=== PATIENT | male | born 1980 | race American Indian/Alaskan Native ===

== ENCOUNTER 2017-04-05 14:50 | Emergency (ER) | payer OTHER, MEDICAID ==
[2017-04-06 00:37] VITALS: BP 104/66
== END 2017-04-05 22:20 | disposition home or self-care (01) ==
LOC: ED 14:50
DX: F29 Unspecified psychosis not due to a substance or known physiological condition (principal); Z88.0 Allergy status to penicillin
CPT/HCPCS: 99282

== ENCOUNTER 2017-08-31 12:15 | Emergency (ER) | payer MEDICAID ==
[2017-08-31 12:31] VITALS: BP 99/75
[2017-08-31] MEDS ORDERED: NORCO 5/325 PO ONE (15:40)
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
== END 2017-08-31 18:57 | disposition home or self-care (01) ==
LOC: ED 12:15
DX: H11.32 Conjunctival hemorrhage, left eye (principal); F17.200 Nicotine dependence, unspecified, uncomplicated; Y04.0XXA Assault by unarmed brawl or fight, initial encounter; Y93.89 Activity, other specified; Y92.89 Other specified places as the place of occurrence of the external cause; Y99.8 Other external cause status
CPT/HCPCS: 70450; 70486

== ENCOUNTER 2018-04-26 14:07 | Emergency (ER) | payer MEDICAID ==
[2018-04-26 15:07] LABS: Basophils # (Auto) 0.1 K/mm3 (0.0-0.1); Basophils % (Auto) 1.1 % (0.0-1.8); Eosinophils % (Auto) 0.3 % (0.0-4.3); Hematocrit 44.9 % (35.5-45.6); Hemoglobin 15.1 gm/dl (11.8-15.2); Lymphocytes # (Auto) 2.5 K/mm3 (1.2-5.4); Lymphocytes % (Auto) 33.1 % (13.4-35.0); Mean Corpuscular HGB Conc 34 % (32-34); Mean Corpuscular Hemoglobin 30 pg (28-32); Mean Corpuscular Volume 88 fl (84-94); Monocytes # (Auto) 0.5 K/mm3 (0.0-0.8); Monocytes % (Auto) 7.3 % (0.0-7.3); Platelet Count 240 K/mm3 (140-440); Red Cell Distribution Width 14.4 % (13.2-15.2)
[2018-04-26 15:19] LABS: BUN/Creatinine Ratio 11; Blood Urea Nitrogen 10 mg/dL (9-20); Calcium 9.7 mg/dL (8.4-10.2); Hemolysis Index 162
[2018-04-26] MEDS ORDERED: NACL 0.9% 1000 ML 1,000 ML IV ONE (15:55)
--- NOTE | 2018-04-26 17:48 | Emergency Department Report ---
HPI - General Chief Complaint: Syncope Time Seen by Provider: 04/26/18 15:55 - HPI HPI: The patient is a 37-year-old male who presents for evaluation of syncope. The patient reports experiencing constant severe lightheadedness for the past one day, exacerbated with physical activity or ambulation, improved with lying down and resting. He shares that he was walking outside in the hot sun when his lightheadedness became worse and he passed out. The patient denies fever, head injury, headache, neck pain, neck stiffness, vision or hearing changes, smell or taste changes, paresthesias, facial drooping, slurred speech, seizure-like activity, urine or bowel incontinence or retention, or other focal neurological deficit. ED Past Medical Hx - Past Medical History Hx Hypertension: Yes Hx Psychiatric Treatment: Yes Additional medical history: TBI - Surgical History Hx Cholecystectomy: Yes Additional Surgical History: brain stent, punctured lung. tonsillectomy - Social History Smoking Status: Current Every Day Smoker Substance Use Type: None - Medications Home Medications: Home Medications Medication Instructions Recorded Confirmed Last Taken Type Cyclobenzaprine [Flexeril] 10 mg PO TID PRN #15 tablet 02/03/14 Unknown Rx Ibuprofen [Motrin] 800 mg PO Q8H PRN #15 tablet 02/03/14 Unknown Rx Prednisone [Prednisone 5 mg (6-Day 5 mg PO .TAPER #1 tab.ds.pk 02/03/14 Unknown Rx Pack, 21 Tabs)] Naproxen [Naprosyn TAB] 375 mg PO BID #30 tablet 08/31/17 Unknown Rx ED Review of Systems ROS: Stated complaint: SYNCOPE Other details as noted in HPI Constitutional: reports syncope denies: fever ENT: denies: throat or neck pain Respiratory: denies: cough, shortness of breath Cardiovascular: denies: chest pain Endocrine: denies unexplained weight loss or gain Gastrointestinal: denies: abdominal pain, nausea Genitourinary: denies: dysuria Musculoskeletal: denies: leg swelling Skin: denies: rash Neurological: denies: headache Hematological/Lymphatic: denies: easy bleeding or easy bruising Psych: denies sadness or hopelessness Physical Exam - Physical Exam Vital Signs: Vital Signs 04/26/18 04/26/18 04/26/18 14:15 14:30 14:35 Temperature 98 F Pulse Rate 85 75 Respiratory 24 16 Rate Blood Pressure 99/66 104/68 99/66 O2 Sat by Pulse 95 95 Oximetry 04/26/18 04/26/18 04/26/18 14:42 14:46 15:00 Temperature Pulse Rate 75 82 80 Respiratory 20 23 Rate Blood Pressure 102/64 102/64 O2 Sat by Pulse 97 Oximetry 04/26/18 04/26/18 04/26/18 15:16 15:30 15:46 Temperature Pulse Rate 84 86 92 H Respiratory 17 22 21 Rate Blood Pressure 98/66 98/66 99/66 O2 Sat by Pulse 98 98 Oximetry 04/26/18 04/26/18 04/26/18 16:00 16:16 16:30 Temperature Pulse Rate 82 Respiratory 26 H 24 18 Rate Blood Pressure 99/66 108/60 108/60 O2 Sat by Pulse 97 Oximetry 04/26/18 04/26/18 16:46 17:00 Temperature Pulse Rate Respiratory 27 H 19 Rate Blood Pressure 108/60 99/66 O2 Sat by Pulse Oximetry Physical Exam: General: well-nourished, well-developed, no acute distress Head: Normocephalic, atraumatic Eyes: normal sclera ENT: Mucous membranes are pale and dry Neck: No neck stiffness, no cervical adenopathy Respiratory: Breath sounds equal bilaterally, no wheezing, rales, or rhonchi Cardio: S1 and S2 present, no murmurs, rubs, gallops, capillary refill is delayed Abdomen: Normoactive bowel sounds, soft abdomen, no rigidity, no guarding or rebound tenderness Musc: No pitting edema Skin: No rash Neuro: alert oriented x4, normal cognition, speech normal, PERRL, EOM intact, no facial drooping, no uvula or tongue deviation on protrusion, no deficit with rotation of neck or shoulder shrug, no obvious gross motor deficit in the upper or lower extremities with flexion or extension at the shoulder, elbow, wrist, hip, knee, or ankle bilaterally, no obvious gross sensation deficit to crude touch or 2 pt discrimination, 2+ symmetric reflexes on DTR testing, no coordination deficit with [id number] or [id number] testing, Babinski downgoing, romberg negative, patient able to to ambulate without abnormal gait Psych: Normal affect ED Course Vital Signs 04/26/18 04/26/18 04/26/18 14:15 14:30 14:35 Temperature 98 F Pulse Rate 85 75 Respiratory 24 16 Rate Blood Pressure 99/66 104/68 99/66 O2 Sat by Pulse 95 95 Oximetry 04/26/18 04/26/18 04/26/18 14:42 14:46 15:00 Temperature Pulse Rate 75 82 80 Respiratory 20 23 Rate Blood Pressure 102/64 102/64 O2 Sat by Pulse 97 Oximetry 04/26/18 04/26/18 04/26/18 15:16 15:30 15:46 Temperature Pulse Rate 84 86 92 H Respiratory 17 22 21 Rate Blood Pressure 98/66 98/66 99/66 O2 Sat by Pulse 98 98 Oximetry 04/26/18 04/26/18 04/26/18 16:00 16:16 16:30 Temperature Pulse Rate 82 Respiratory 26 H 24 18 Rate Blood Pressure 99/66 108/60 108/60 O2 Sat by Pulse 97 Oximetry 04/26/18 04/26/18 16:46 17:00 Temperature Pulse Rate Respiratory 27 H 19 Rate Blood Pressure 108/60 99/66 O2 Sat by Pulse Oximetry ED Medical Decision Making - Lab Data Result diagrams: 04/26/18 14:25 04/26/18 14:25 - Medical Decision Making The patient was seen and examined by myself. The patient is placed on a satellite project site monitor and continuous pulse ox. On initial evaluation, the patient was found to be in no distress. Evaluation orders were placed. EKG was negative for arrhythmia or changes concerning for acute cardiac disease process. The patient is given 1 L normal saline fluid bolus for treatment of dehydration and lightheadedness. Lab results were not concerning. The patient was reevaluated and reported that their symptoms were markedly improved. The patient is stable for discharge with outpatient follow-up. The patient is given follow-up and return instructions. The patient expressed understanding and agreed with the plan. The patient is discharged in stable condition. Critical care attestation.: If time is entered above; I have spent that time in minutes in the direct care of this critically ill patient, excluding procedure time. ED Disposition Clinical Impression: Dehydration, Orthostatic dizziness Syncope Qualifiers: Syncope type: unspecified Qualified Code(s): R55 - Syncope and collapse Disposition: - TO HOME OR SELFCARE Is pt being admited?: No Does the pt Need Aspirin: No Condition: Stable Instructions: Syncope (ED), Dehydration (ED) Referrals: PRIMARY CARE, [Primary Care Provider] - 3-5 Days [facility] [Outside] - 3-5 Days Time of Disposition: 17:38
[2018-04-26 18:30] VITALS: BP 108/60
== END 2018-04-26 18:40 | disposition home or self-care (01) ==
LOC: ED 14:07
DX: E86.0 Dehydration (principal); R55 Syncope and collapse; I10 Essential (primary) hypertension; F17.200 Nicotine dependence, unspecified, uncomplicated; Z90.49 Acquired absence of other specified parts of digestive tract
CPT/HCPCS: 36415; 80048; 84484; 85025; 93005; 93010; 96360; 99284